=== PATIENT | male | born 1975 | race African-American/Black ===

== ENCOUNTER 2017-10-15 05:19 | Emergency (ER) | END 2017-10-15 08:28 | disposition home or self-care (01) ==

== ENCOUNTER 2018-10-24 06:36 | Emergency (ER) | payer OTHER ==
[~2018-10-24] VITALS: Ht 177.8 cm; Wt 92.4 kg
[~2018-10-24 06:36] MED LIST: ADV25050 INHALATION; ALBU18HF INHALATION; CARI350T PO; HYDR-3498 PO; MELO15TA30 PO; PRED20TA PO
[2018-10-24 06:41] VITALS: Ht 177.8 cm; Wt 92.4 kg
[2018-10-24] MEDS ORDERED: morphine 4 MG/ML VIAL IV STA (06:57)
[2018-10-24] MEDS ORDERED: ASPIRIN 325 MG TAB PO STA (06:57)
[2018-10-24] MEDS ORDERED: ONDANSETRON 4 MG INJ IV STA (06:57)
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
[2018-10-24] MEDS ORDERED: IBUP-1544 PO (07:11)
[2018-10-24] MEDS ORDERED: OMEP20CA16 PO (08:17)
[2018-10-24 09:32] VITALS: BP 121/87; PULSE 66; RESP 15
== END 2018-10-24 12:33 | disposition home or self-care (01) ==
LOC: E/R 06:36
DX: M94.0 Chondrocostal junction syndrome [Tietze] (principal); I10 Essential (primary) hypertension; J45.909 Unspecified asthma, uncomplicated; F17.210 Nicotine dependence, cigarettes, uncomplicated
CPT/HCPCS: 71045; 80053; 82550; 82553; 83690; 83880; 84484; 85025; 85610; 85730; 93005; 96374; 96375; J2270; J2405; Z7502; Z7610